=== PATIENT | male | born 1985 | race Caucasian/White ===

== ENCOUNTER 2022-01-02 14:23 | Emergency (ER) | payer OTHER ==
[2022-01-02 14:28] VITALS: BP 117/73; PULSE 71; TEMP 98; BMI 29.6
[2022-01-03 04:36] LABS: SYPHILIS W/ RPR CONF NON-REACTIVE (NONREACTIVE)
[2022-01-03 05:05] LABS: HIV INTERPRETATION NEGATIVE (NEGATIVE)
== END 2022-01-02 15:53 | disposition home or self-care (01) ==
LOC: JER 14:23 → JERFT 14:23
DX: Z77.21 Contact with and (suspected) exposure to potentially hazardous body fluids (principal)
CPT/HCPCS: 36415; 86704; 86780; 86803; 87340; 87389; 87517; 99283-25

== ENCOUNTER 2022-10-20 22:07 | Emergency (ER) | payer OTHER ==
[2022-10-20 22:22] VITALS: BP 123/81; PULSE 88; RESP 20; TEMP 98; BMI 31.4
[2022-10-20] MEDS ORDERED: KETOROLAC TROMETHAMINE 30 MG/1 ML VIAL IM ONE (23:25)
[2022-10-20] MEDS ORDERED: LIDOCAINE 5% TOPICAL PATCH TP ONE (23:26)
[2022-10-20] MEDS ORDERED: LIDOCAINE 5% TOPICAL PATCH ONE (23:51)
== END 2022-10-21 00:06 | disposition home or self-care (01) ==
LOC: JER 22:07
PROC: 3E0233Z Introduction of Anti-inflammatory into Muscle, Percutaneous Approach (ICD-10-PCS; principal; 2022-10-20)
DX: S39.012A Strain of muscle, fascia and tendon of lower back, initial encounter (principal); X50.0XXA Overexertion from strenuous movement or load, initial encounter
CPT/HCPCS: 99284-25

== ENCOUNTER 2024-02-17 19:38 | Emergency (ER) | payer OTHER ==
[2024-02-17 19:47] VITALS: BP 131/75; PULSE 65; RESP 18; TEMP 98.4; BMI 32.5
[2024-02-17] MEDS ORDERED: FLUORESCEIN NA 1 EA STRIP ONE (20:04)
[2024-02-17] MEDS ORDERED: TETRACAINE 0.5% OPHTH SOLN 2 ML BOTTLE ONE (20:04)
[2024-02-17] MEDS: FLUORESCEIN NA 1 EA STRIP OU ONE (20:29)
[2024-02-17] MEDS: TETRACAINE 0.5% HCL 0.6ML DROPPER.BOTTLE OU ONE (20:29)
[2024-02-17] MEDS: ERYTHROMYCIN 0.5% OPHTHALMIC OINTMENT 3.5 GM TUBE OD SCH (20:30)
[2024-02-17] MEDS ORDERED: ERYTHROMYCIN 0.5% OPHTHALMIC OINTMENT 3.5 GM TUBE ONE (20:33)
== END 2024-02-17 20:40 | disposition home or self-care (01) ==
LOC: JERFT 19:38
DX: S05.01XA Injury of conjunctiva and corneal abrasion without foreign body, right eye, initial encounter (principal); W22.8XXA Striking against or struck by other objects, initial encounter
CPT/HCPCS: 99283-25